=== PATIENT | female | born 1990 | race African-American/Black ===

== ENCOUNTER 2022-03-06 09:00 | Emergency (ER) | payer OTHER, MEDICAID, SELFPAY ==
[2022-03-06 09:13] VITALS: BP 141/102; PULSE 81; RESP 16; TEMP 35.7; O2SAT 100
--- NOTE | 2022-03-06 09:14 | ED.EAR ---
HPI - Ear Problem General Chief complaint: Ear Stated complaint: Ear Pain Time Seen by Provider: 03/06/22 09:15 Source: patient Mode of arrival: ambulatory Limitations: no limitations History of Present Illness HPI Narrative: Kelsy Crane is a 31 yo female with no PMH comes to the [facility] with right ear pain started a few days ago. She has history of having ear problems and she states it is because she uses judy pins to clean out her ears are her fingernails. Discussed use of Debrox Debrox on a regular basis she also has a red raised rash bilateral across breasts and lower back denies any change in lotion or cleaning products Related Data Home Medications Medication Instructions Recorded Confirmed rimegepant [Nurtec ODT] 75 mg DIRECTED 03/06/22 03/06/22 Allergies Allergy/AdvReac Type Severity Reaction Status Date / Time tramadol Allergy Mild ITCHING Unverified 04/18/15 10:20 ofloxacin Allergy Swelling Verified 03/06/22 10:15 Review of Systems Review of Systems: CONSTITUTIONAL: Denies fever, chills, sweats. EYES: Denies visual changes, redness, discharge. ENT: Denies rhinorrhea, congestion, sore throat, right otalgia. CARDIOVASCULAR: Denies chest pain, palpitations, edema. RESPIRATORY: Denies dyspnea, wheezing, cough GASTROINTESTINAL: Denies abdominal pain, nausea, vomiting, diarrhea. GENITOURINARY: Denies dysuria, hematuria, abnormal discharge SKIN: Denies rash or itching. Red pruritic rash on breasts and back NEUROLOGIC: Denies numbness, or focal weakness. PSYCHIATRIC: Denies anxiety or depression. PMFSH Past Medical History Medical History Ear infection Family History Family History Other Hypertension Social History Social History (Updated 03/06/22 @ 09:30 by Feli Nettles CNP) Smoking status: Never smoker Alcohol intake: current Comments At time of signature, I agree with nursing past medical, surgical, social and family history. There is no relevant family history pertinent to the presenting complaint. Blood pressure elevated at this visit Exam Narrative: GENERAL: This is a well-nourished, well-developed patient, in mild distress. HEAD: normocephalic, atraumatic. EYES: Sclera clear/white. Vision is grossly intact. EARS: External ears normal, auditory canals clear on L, erythema on right with mild swelling and without drainage, TMs normal without perforation. Hearing grossly intact. NOSE: External nose normal without nasal discharge, nares without redness, no rhinorrhea. THROAT: Mucous membranes moist, posterior pharynx NECK: Neck supple, non-tender CARDIOVASCULAR: Regular rate and rhythm without murmurs, gallops, or rubs. RESPIRATORY: Clear to auscultation. Breath sounds equal bilaterally. No wheezes, rales, or rhonchi. GASTROINTESTINAL: Abdomen soft, non-tender, SKIN: warm, intact with no suspicious lesions or rash, good texture and turgor. NEURO: awake, alert, and oriented to person, place and time. There were no obvious focal neurologic abnormalities. Steady gait EXTREMITIES: Normal range of motion. BACK: Nontender without deformity Course Course Emergency Course: Right ear pain for a few days; contact erythematous type rash on breasts and back for few days Started on polymyxin and Medrol Dosepak and Pepcid to take Benadryl at bedtime as needed Level of Care: Express Care Visit Vital Signs Vital signs: Vital Signs Temperature 96.2 F L 03/06/22 09:13 Pulse Rate 81 03/06/22 09:13 Respiratory Rate 16 03/06/22 09:13 Blood Pressure 141/102 H 03/06/22 09:13 Pulse Oximetry 100 03/06/22 09:13 Temperature 96.2 F L 03/06/22 09:13 Pulse Rate 81 03/06/22 09:13 Respiratory Rate 16 03/06/22 09:13 Blood Pressure 141/102 H 03/06/22 09:13 Pulse Oximetry 100 03/06/22 09:13 Medical Decision Making Differential Diagnosis Differential D
== END 2022-03-06 09:41 | disposition home or self-care (01) ==
PROVIDERS: Emergency Provider Nurse Practitioner; PCP Family Medicine Sports Medicine
DX: H66.004 Acute suppurative otitis media without spontaneous rupture of ear drum, recurrent, right ear (principal); L23.7 Allergic contact dermatitis due to plants, except food
CPT/HCPCS: 99213; G0463

== ENCOUNTER 2022-06-26 08:04 | Emergency (ER) | payer OTHER, MEDICAID, SELFPAY ==
[2022-06-26 08:14] VITALS: BP 136/87; PULSE 83; RESP 16; TEMP 36.1; O2SAT 100
--- NOTE | 2022-06-26 08:16 | ED.EAR ---
HPI - Ear Problem General Chief complaint: Ear Stated complaint: ear pain Time Seen by Provider: 06/26/22 08:20 History of Present Illness HPI Narrative: Kelsy Crane is a 31 yo female with a PMH of migraine headache who [facility] with right ear pain that started yesterday. She been treated for a left ear infection a couple months ago and had eardrops left but she stated that her ear felt like had swelling in the inside. She has had no fever no nausea vomiting or diarrhea Related Data Allergies Allergy/AdvReac Type Severity Reaction Status Date / Time tramadol Allergy Mild ITCHING Unverified 06/26/22 08:10 ofloxacin Allergy Swelling Verified 06/26/22 08:10 Review of Systems Review of Systems: CONSTITUTIONAL: Denies fever, chills, sweats. EYES: Denies visual changes, redness, discharge. ENT: Denies rhinorrhea, congestion, sore throat, right otalgia. CARDIOVASCULAR: Denies chest pain, palpitations, edema. RESPIRATORY: Denies dyspnea, wheezing, cough GASTROINTESTINAL: Denies abdominal pain, nausea, vomiting, diarrhea. GENITOURINARY: Denies dysuria, hematuria, abnormal discharge SKIN: Denies rash or itching. NEUROLOGIC: Denies numbness, or focal weakness. PSYCHIATRIC: Denies anxiety or depression. [facility] Past Medical History Medical History Ear infection Migraine Family History Family History Other Hypertension Social History Social History Smoking status: Never smoker Alcohol intake: current Comments At time of signature, I agree with nursing past medical, surgical, social and family history. There is no relevant family history pertinent to the presenting complaint. Exam Narrative: GENERAL: This is a well-nourished, well-developed patient, in mild distress. HEAD: normocephalic, atraumatic. EYES: . Sclera clear/white. Vision is grossly intact. EARS: External ears normal, auditory canals white erythema with edema and white drainage, . Hearing grossly intact. NOSE: External nose normal without nasal discharge, nares without redness, no rhinorrhea. THROAT: Mucous membranes moist, NECK: Neck supple, non-tender CARDIOVASCULAR: Regular rate and rhythm without murmurs, gallops, or rubs. RESPIRATORY: Clear to auscultation. Breath sounds equal bilaterally. No wheezes, rales, or rhonchi. GASTROINTESTINAL: Abdomen soft, SKIN: warm, intact with no suspicious lesions or rash, good texture and turgor. NEURO: awake, alert, and oriented to person, place and time. There were no obvious focal neurologic abnormalities. Steady gait EXTREMITIES: Normal range of motion. BACK: Nontender without deformity Course Course Emergency Course: Patient here with right ear pain Did have not have good response to eardrops; started on amoxicillin Level of Care: Express Care Visit Vital Signs Vital signs: Vital Signs Temperature 97.0 F L 06/26/22 08:14 Pulse Rate 83 06/26/22 08:14 Respiratory Rate 16 06/26/22 08:14 Blood Pressure 136/87 06/26/22 08:14 Pulse Oximetry 100 06/26/22 08:14 Oxygen Delivery Room Air 06/26/22 08:14 Temperature 97.0 F L 06/26/22 08:14 Pulse Rate 83 06/26/22 08:14 Respiratory Rate 16 06/26/22 08:14 Blood Pressure 136/87 06/26/22 08:14 Pulse Oximetry 100 06/26/22 08:14 Oxygen Delivery Room Air 06/26/22 08:14 Medical Decision Making Differential Diagnosis Differential Diagnosis: Otitis externa versus Anil media versus eustachian tube dysfunction Vital Signs Vital Signs: Vital Signs Temperature 97.0 F L 06/26/22 08:14 Pulse Rate 83 06/26/22 08:14 Respiratory Rate 16 06/26/22 08:14 Blood Pressure 136/87 06/26/22 08:14 Pulse Oximetry 100 06/26/22 08:14 Oxygen Delivery Room Air 06/26/22 08:14 Temperature 97.0 F L 06/26/22 08:14 Pulse Rate 83
== END 2022-06-26 08:34 | disposition home or self-care (01) ==
PROVIDERS: Emergency Provider Nurse Practitioner; PCP Family Medicine Sports Medicine
DX: H66.91 Otitis media, unspecified, right ear (principal)
CPT/HCPCS: 99213; G0463

== ENCOUNTER 2022-09-12 08:29 | Emergency (ER) | payer OTHER, MEDICAID, SELFPAY ==
[2022-09-12 08:51] VITALS: BP 144/98; PULSE 96; RESP 18; TEMP 36.2; O2SAT 100
--- NOTE | 2022-09-12 08:57 | ED.EAR ---
HPI - Ear Problem General Chief complaint: Ear Stated complaint: Right Ear Irritation Time Seen by Provider: 09/12/22 08:57 Source: patient Mode of arrival: ambulatory Limitations: no limitations History of Present Illness HPI Narrative: 31-year-old female presents with complaint of right ear pain and drainage for 2 days. Reports history of ear infections. reports trying multiple antibiotics in the past to treat infections and only [employer] works. States that both ears have been itchy and she itches them at night with her acrylic fingernails. Afebrile. All systems reviewed and negative except as noted above. Related Data Home Medications Medication Instructions Recorded Confirmed rimegepant 75 mg disintegrating mg 09/12/22 tablet (Nurtec ODT) Allergies Allergy/AdvReac Type Severity Reaction Status Date / Time tramadol Allergy Mild ITCHING Verified 09/12/22 08:50 ofloxacin Allergy Swelling Verified 06/26/22 08:10 Review of Systems Review of Systems: CONSTITUTIONAL: Denies fever, chills, or sweats. EYES: Denies visual changes, redness, or discharge. ENT: Denies rhinorrhea, congestion, sore throat . Reports right ear pain. CARDIOVASCULAR: Denies chest pain, palpitations, or edema. RESPIRATORY: Denies cough or dyspnea. GASTROINTESTINAL: Denies abdominal pain, nausea, vomiting, or diarrhea. GENITOURINARY: Denies dysuria or hematuria. SKIN: Denies rash or itching. MUSCULOSKELETAL: Denies back pain, joint pain, or myalgia. NEUROLOGIC: Denies headache, numbness, or weakness. PSYCHIATRIC: Denies anxiety or depression. All other systems reviewed are negative, except as documented in HPI. PMFSH Past Medical History Medical History Ear infection Migraine Family History Family History Other Hypertension Social History Social History Smoking status: Never smoker Alcohol intake: current Comments At time of signature, agree with nursing past medical, surgical, social and family history. There is no relevant family history pertinent to the presenting complaint. Exam Narrative: GENERAL: This is a well-nourished, well-developed patient, in no apparent distress. HEAD: normocephalic, atraumatic. EYES: PERRL. Sclera clear/white. Vision is grossly intact. EARS: External ears normal, Left ear canal clear. Right ear canal is erythematous, mild swelling with yellowish green drainage. Right TM is erythematous, retracted. Left TM is normal. NOSE: External nose normal NECK: Neck supple, non-tender without lymphadenopathy, masses or thyromegaly. CARDIOVASCULAR: Regular rate and rhythm without murmurs, gallops, or rubs. RESPIRATORY: Clear to auscultation. Breath sounds equal bilaterally. No wheezes, rales, or rhonchi. SKIN: warm, Dry, intact with no suspicious lesions or rash, good texture and turgor. NEURO: awake, alert, and oriented to person, place and time. There were no obvious focal neurologic abnormalities. EXTREMITIES: No joint tenderness, effusion, or edema noted. Course Course Level of Care: Express Care Visit Vital Signs Vital signs: Vital Signs Temperature 36.2 C L 09/12/22 08:51 Pulse Rate 96 09/12/22 08:51 Respiratory Rate 18 09/12/22 08:51 Blood Pressure 144/98 H 09/12/22 08:51 Pulse Oximetry 100 09/12/22 08:51 Oxygen Delivery Room Air 09/12/22 08:51 Temperature 36.2 C L 09/12/22 08:51 Pulse Rate 96 09/12/22 08:51 Respiratory Rate 18 09/12/22 08:51 Blood Pressure 144/98 H 09/12/22 08:51 Pulse Oximetry 100 09/12/22 08:51 Oxygen Delivery Room Air 09/12/22 08:51 reviewed Medical Decision Making MDM Narrative Medical decision making narrative: Patient is aware of diagnosis, understands and agrees to treatment plan. Anticipatory guidance given. Patient agrees to f
== END 2022-09-12 09:23 | disposition home or self-care (01) ==
PROVIDERS: Emergency Provider Nurse Practitioner Family; PCP Family Medicine Sports Medicine
DX: H60.501 Unspecified acute noninfective otitis externa, right ear (principal); H66.91 Otitis media, unspecified, right ear
CPT/HCPCS: 99213; G0463

== ENCOUNTER 2023-01-24 10:24 | Emergency (ER) | payer OTHER, MEDICAID, SELFPAY ==
--- NOTE | 2023-01-24 10:33 | ED.EAR ---
HPI - Ear Problem General Chief complaint: Ear Stated complaint: ear infection Time Seen by Provider: 01/24/23 10:56 Source: patient and RN notes reviewed Mode of arrival: ambulatory Limitations: no limitations History of Present Illness HPI Narrative: 32-year-old female presents concern for bilateral ear pain and drainage from both ears. Reports history of internal and external infections. Reports she has chronically itchy ears and she uses Matthew pins to itch her ears. Reports she has had this infection in the past and it was difficult to clear her with amoxicillin. Reports she has seen an ENT in past. She denies hearing changes. MD Complaint: ear pain and ear discharge Related Data Allergies Allergy/AdvReac Type Severity Reaction Status Date / Time ofloxacin Allergy Intermediate Swelling Verified 01/24/23 10:31 tramadol Allergy Mild ITCHING Verified 01/24/23 10:31 Review of Systems Review of Systems: CONSTITUTIONAL: Denies malaise, chills, sweats, or fever. EYES: Denies visual changes, redness, or discharge. ENT: Denies rhinorrhea, congestion, sinus pain, and sore throat. Reports bilateral ear pain and drainage CARDIOVASCULAR: Denies chest pain, palpitations, or edema. RESPIRATORY: Denies cough. Denies dyspnea. GASTROINTESTINAL: Denies abdominal pain, nausea, vomiting, diarrhea SKIN: Denies rash or itching. MUSCULOSKELETAL: Denies myalgia. NEUROLOGIC: Denies headache. All systems reviewed & are unremarkable except as noted in HPI and below PMFSH Past Medical History Medical History Ear infection Migraine Family History Family History Other Hypertension Social History Social History Smoking status: Never smoker Alcohol intake: current Comments At time of signature, agree with nursing past medical, surgical, social and family history. There is no relevant family history pertinent to the presenting complaint Exam Narrative: GENERAL: Well-appearing, well-nourished, and in no acute distress. HEAD: Normocephalic EYES: PERRLA, conjunctivae clear ENT: Nares clear. Mucous membranes moist. TM not visible due to EAC drainage bilaterally; bilateral purulence drainage in the EAC no tragal tenderness. Oropharynx not erythematous without lesions. Tonsils not enlarged and without exudate, no drooling, no hoarseness, no trismus, uvula midline. NECK: Supple. No lymphadenopathy CHEST: Clear to auscultation, breath sounds equal. No wheezing, rhonchi, rales, or stridor. No respiratory distress, speaks in full sentences. HEART: Regular rate and rhythm. No murmur heard. SKIN: Warm, dry, no rash. NEURO: Alert and oriented x3. PSYCH: Normal mood and affect Course Course Emergency Course: Ear emily used to try to clear ear canal without success, because of patient's ear pain and inability to visualize the TM will treat prophylactically for otitis media. Patient denies about not using foreign objects in her ears, advised to follow-up with ENT for further evaluation of her ears Patient is aware of diagnosis, understands and agrees to treatment plan. Anticipatory guidance given. Patient agrees to follow-up as directed and is aware of reasons to seek care at the emergency department. Portions of this record may have been created with voice recognition software Level of Care: Express Care Visit Vital Signs Vital signs: Reviewed. Medical Decision Making MDM Narrative Medical decision making narrative: Differential diagnosis considered: Daniels virus, strep pharyngitis, allergic rhinitis, upper respiratory tract infection, sinusitis, rhinosinusitis, nasopharyngitis. viral pharyngitis, otitis media, otitis externa, otitis effusion, cerumen impaction, foreign body. Exam findings show no acute concerns or changes; patient is non-toxic appearing and is in no distress.
[2023-01-24 10:36] VITALS: BP 132/88; PULSE 71; RESP 16; TEMP 36.9; O2SAT 99
== END 2023-01-24 11:17 | disposition home or self-care (01) ==
PROVIDERS: Emergency Provider Nurse Practitioner; PCP Family Medicine Sports Medicine
DX: H60.313 Diffuse otitis externa, bilateral (principal)
CPT/HCPCS: 99213; G0463

== ENCOUNTER 2024-09-22 17:48 | Emergency (ER) | payer OTHER, SELFPAY ==
--- NOTE | 2024-09-22 18:03 | ED_ITS ---
HPI - Ear Problem General Chief complaint: Ear Stated complaint: Ears Irritation Time Seen by Provider: 09/22/24 18:03 Source: patient, RN notes reviewed and old records reviewed Mode of arrival: ambulatory Limitations: no limitations History of Present Illness HPI Narrative: Patient presents with complaints of bilateral ear pain that has been present for 3 weeks, worse in the past 2 day. She denies any injury or trauma. She does report some drainage from the ears. Drainage has been present for a couple of days. She reports that for the past several years, she has had problems with otitis externa that is resistant to otic drops. Says that she has been following with ENT, has not had an appointment for sometime. She denies any fever, chills, sweats. Denies any loss of hearing Related Data Allergies Allergy/AdvReac Type Severity Reaction Status Date / Time ofloxacin Allergy Intermediate Swelling Verified 01/24/23 10:31 tramadol Allergy Mild ITCHING Verified 01/24/23 10:31 Review of Systems Review of Systems: All systems reviewed & are unremarkable except as noted in HPI and below Constitutional: Constitutional: Reports no additional constitutional complaints ENT: Reports system reviewed and no additional complaints, except as documented, Reports ear discharge and Reports otalgia Cardiovascular: Cardiovascular: Reports no additional cardiovascular complaints Respiratory: Respiratory: Reports no additional respiratory complaints Gastrointestinal: Gastrointestinal: Reports no additional gastrointestinal complaints [facility] Past Medical History Medical History Ear infection Migraine Family History Family History Other Hypertension Social History Social History Smoking status: Never smoker Alcohol intake: current Comments At the time of my signature, I reviewed and agree with the nursing past medical, surgical, social, and family history. There is no relevant family history pertinent to the patient complaint. Exam Const: General: cooperative, no acute distress, alert and awake Orientation/consciousness: oriented to person, oriented to place and oriented to time HENMT: Head: normal to inspection Ears: Abnormal EAC present erythema bilateral, edema bilateral and otic discharge purulent Resp: Effort & Inspection: normal respiratory effort and able to speak in complete sentences Auscultation: clear to auscultation bilaterally, no crackles, no rales, no rhonchi and no wheezes Cardio: Palpation: normal PMI Rate: regular rate Rhythm: regular rhythm Heart sounds: S1 normal heart sound present and S2 normal heart sound present Neuro: General: oriented to person, oriented to place and oriented to time Cranial nerves: Yes CN's II-XII intact bilaterally Psych: Appearance: grossly normal Thought process: Normal thought process present Insight: Good insight present (Psych) Judgement: Good judgement present (Psych) Course Course Level of Care: Express Care Visit Vital Signs Vital signs: Vital Signs Temperature 98 F 09/22/24 18:06 Pulse Rate 75 09/22/24 18:06 Respiratory Rate 20 09/22/24 18:06 Blood Pressure 147/90 H 09/22/24 18:06 Pulse Oximetry 100 09/22/24 18:06 Oxygen Delivery Room Air 09/22/24 18:06 Temperature 98 F 09/22/24 18:06 Pulse Rate 75 09/22/24 18:06 Respiratory Rate 20 09/22/24 18:06 Blood Pressure 147/90 H 09/22/24 18:06 Pulse Oximetry 100 09/22/24 18:06 Oxygen Delivery Room Air 09/22/24 18:06 Reviewed Medical Decision Making MDM Narrative Medical decision making narrative: Patient with significant otitis externa to bilateral ears. She reports often times otic drops to not take care of the problem once a gets to this point. Start p.o. antibiotics. Follow with primary care provider and ENT. Discharge instructions reviewed with patient, as well as provided in writing per nursing staff. The instructions also include specific and strict return/GO TO THE ER as well as f/u information. All questions have been answered, and the patient deny any further questions with discharge and discharge plan. Some parts of this dictation were generated by voice recognition software and may contain typographical and/or grammatical inaccuracies. Differential Diagnosis Differential Diagnosis: Differential diagnoses include otitis media, otitis externa, trauma Medical Records Medical records reviewed: Yes I reviewed the external patient's medical records. Vital Signs Vital Signs: Vital Signs Temperature 98 F 09/22/24 18:06 Pulse Rate 75 09/22/24 18:06 Respiratory Rate 20 09/22/24 18:06 Blood Pressure 147/90 H 09/22/24 18:06 Pulse Oximetry 100 09/22/24 18:06 Oxygen Delivery Room Air 09/22/24 18:06 Temperature 98 F 09/22/24 18:06 Pulse Rate 75 09/22/24 18:06 Respiratory Rate 20 09/22/24 18:06 Blood Pressure 147/90 H 09/22/24 18:06 Pulse Oximetry 100 09/22/24 18:06 Oxygen Delivery Room Air 09/22/24 18:06 reviewed Lab Data Lab results reviewed: Yes I reviewed the patient's lab results. Lab results narrative: reviewed Discharge Plan Discharge Clinical Impression: Otitis externa Patient Disposition: Home, Self-Care Condition: Stable Instructions: Antibiotic Form, Swimmer's Ear (ED) Additional Instructions: Take medications as prescribed. Follow with primary care provider. Emergency department for new or worse symptoms Patient Language: Urdu Prescriptions: New amoxicillin-pot clavulanate 875-125 mg tablet 1 tablet PO Q12H Qty: 14 0RF Follow-up/Referrals: Wendy,Sohan Yip MD [Primary Care Provider] - 2 Weeks Time of Disposition: 18:13
[2024-09-22 18:06] VITALS: BP 147/90; PULSE 75; RESP 20; TEMP 36.6; O2SAT 100
== END 2024-09-22 18:20 | disposition home or self-care (01) ==
PROVIDERS: Emergency Provider Nurse Practitioner Family; PCP Family Medicine Sports Medicine
DX: H60.93 Unspecified otitis externa, bilateral (principal)
CPT/HCPCS: 99213; G0463